=== PATIENT | male | born 1990 | race Two or more races ===

== ENCOUNTER 2016-11-27 18:25 | Emergency (ER) | payer MEDICAID ==
[~2016-11-27 18:25] MED LIST: COLACE100 M1 PO; CYCLOBENZAPRINE10 M1 PO; ESCITALOPRAM OX20 M1 PO; NAPROXEN500 M2 PO; NO HOME MEDICATION XX; NORCO 5-325 TA1 EACH PO; NORCO 5/3251 TAB PO; ZANTAC150 M1 PO; ZITHROMAX250 M1 PO
== END 2016-11-27 19:53 ==
LOC: EDMED 18:25
DX: H10.31 Unspecified acute conjunctivitis, right eye (principal); F17.210 Nicotine dependence, cigarettes, uncomplicated